=== PATIENT | male | born 1985 | race Caucasian/White ===

== ENCOUNTER → 2023-04-13 | Outpatient (CLI) | payer MEDICAID ==
--- NOTE | 2023-04-13 10:21 | CA ---
Transthoracic Echo Report Name: Geoffrey Joyce Age: 37 Gender: M : 1985 Exam Date: 04/13/2023 09:20 Exam Location: [facility] Ht (in): 70 Wt (lb): 160 Ordering Physician: Beka Avendano MD Attending/Referring Phys: Iraida Yates [facility] Recovery Assistant Mónica Messer RDCS Procedure CPT: Indications: R7.89 other chest pain Cardiac Hx: Technical Quality: Contrast 1: Total Dose (mL): Contrast 2: Total Dose (mL): MEASUREMENTS (Male / Female) Normal Values 2D ECHO LV Diastolic Diameter PLAX 4.8 cm 4.2 - 5.9 / 3.9 - 5.3 cm LV Systolic Diameter PLAX 3.4 cm IVS Diastolic Thickness 1.0 cm 0.6 - 1.0 / 0.6 - 0.9 cm LVPW Diastolic Thickness 0.9 cm 0.6 - 1.0 / 0.6 - 0.9 cm LV Relative Wall Thickness 0.4 LVOT Diameter 2.3 cm Aortic Root Diameter 3.8 cm LA Systolic Diameter LX 3.2 cm 3.0 - 4.0 / 2.7 - 3.8 cm LV Diastolic Volume MOD BP 137.6 cm??? 67 - 155 / 56 - 104 cm??? LV Systolic Volume MOD BP 62.1 cm??? 22 - 58 / 19 - 49 cm??? LV Ejection Fraction MOD BP 54.9 % >= 55 % LV Cardiac Index MOD BP 2111.2 cm???/min???m??? LV Diastolic Volume MOD 4C 157.1 cm??? LV Systolic Volume MOD 4C 73.0 cm??? LV Ejection Fraction MOD 4C 53.5 % LV Cardiac Index MOD 4C 2352.0 cm???/min???m??? LV Diastolic Length 4C 9.8 cm LV Systolic Length 4C 8.7 cm LV Diastolic Volume MOD 2C 121.6 cm??? LV Systolic Volume MOD 2C 50.0 cm??? LV Ejection Fraction MOD 2C 58.9 % LV Cardiac Index MOD 2C 2002.2 cm???/min???m??? LV Diastolic Length 2C 9.7 cm LV Systolic Length 2C 8.2 cm DOPPLER AV Peak Velocity 123.2 cm/s AV Peak Gradient 6.1 mmHg AV Mean Velocity 92.9 cm/s AV Mean Gradient 3.7 mmHg AV Velocity Time Integral 27.4 cm LVOT Peak Velocity 110.3 cm/s LVOT Peak Gradient 4.9 mmHg LVOT Velocity Time Integral 25.1 cm LVOT Stroke Volume 101.2 cm??? LVOT Stroke Volume Index 53.3 ml/m??? LVOT Cardiac Index 2830.0 cm???/min???m??? AV Area Cont Eq vti 3.7 cm??? AV Area Cont Eq pk 3.6 cm??? Mitral E Point Velocity 105.4 cm/s Mitral A Point Velocity 72.5 cm/s Mitral E to A Ratio 1.5 MV Deceleration Time 220.6 ms MV E' Velocity 12.6 cm/s Mitral E to MV E' Ratio 8.4 TR Peak Velocity 106.0 cm/s TR Peak Gradient 4.5 mmHg Right Ventricular Systolic Press 14.5 mmHg PV Peak Velocity 71.1 cm/s PV Peak Gradient 2.0 mmHg FINDINGS Left Ventricle Mildly increased left ventricular systolic volume. Left ventricular ejection fraction is estimated at 55-60%. No obvious regional wall motion abnormalities. Right Ventricle Normal right ventricular size. Right ventricular systolic pressure estimated at 14.49 mmhg. Right Atrium Normal right atrial size. Left Atrium Normal left atrial size. Mitral Valve Trace mitral regurgitation. Aortic Valve Trileaflet aortic valve. Tricuspid Valve Trace tricuspid regurgitation. Pulmonic Valve No pulmonic regurgitation. Pericardium No pericardial effusion. Aorta Normal size aortic root. CONCLUSIONS Normal LV function Previewed by: Dr. Landon Dash MD (Electronically Signed) Final Date: 13 April 2023 10:20
--- NOTE | 2023-04-13 17:41 | CA ---
Exercise Stress Test Report Name: Geoffrey Joyce Exam Date: 04/13/2023 10:55 Exam Location: [facility] Ht (in): 70 Wt (lb): 160 BSA: 1.90 Ordering Phys: Beka Avendano MD Referring Phys: Iraida Yates Technologist: Solitario Valero Age: 37 Gender: M : 1985 Procedure CPT: Indications: R07.89 other chest pain ICD-10 Codes: Patient History: CHEST PAIN, ELEVATED CHOLESTEROL LEVELS, FAMILY HX OF HEART DISEASE Medications: NONE Meds past 24 hrs: Pretest Chest Pain: STRESS TEST Shady Protocol Exercise Duration (min:sec): 13:[address] Depressions (mm): Angina Score: Hart Score: Resting HR (bpm): 71 Peak HR (bpm): 170 Resting BP (mmHg): 112 / 74 Peak BP (mmHg): 176 / 69 MPHR: 183 Target HR: 156 % MPHR: 93 METS: 14.8 Total Dose: Peak Dose: Atropine: Double Product: 60282 BP Response: Stress Termination: TARGET HR REACHED/MAX EXERTION Stress Symptoms: NO SYMPTOMS Stress Summary: ECG ANALYSIS Resting ECG: Normal sinus rhythm normal axis normal intervals Stress ECG: Patient exercised on Shady protocol for 13 minutes achieving 85% of predicted maximal heart rate without chest pain or diagnostic ST segment depression CONCLUSIONS Excellent exercise tolerance Negative stress test by EKG criteria Dr. Landon Dash MD (Electronically Signed) Final Date: 13 April 2023 17:40
--- NOTE | 2023-04-14 13:39 | NM ---
EXAMINATION TYPE: NM stress cardiolite complete DATE OF EXAM: 04/13/2023 COMPARISON: NONE CLINICAL INDICATION: Male, 37 years old with history of R07.89 other chest pain; TECHNIQUE: After the intravenous administration of 9.7 mCi Tc 99m Sestamibi - Rest images obtained 6 3 minutes post injection. The patient exercised using a BRADY protocol and 1 minute prior to peak e xercise was injected with 25.5 mCi Tc 99m Sestamibi - Stress images obtained 26 minutes post injectio n. FINDINGS: Targeted heart rate (156 BPM) was achieved during performance of the study (170 BPM achieved with tot al exercise time 13 minutes 30 seconds). Review of stress and rest SPECT images demonstrates a fixed defect along the mid to basal inferoseptal wall that accentuates along the mid aspect of the heart on stress. Gated analysis shows normal wall motion with an estimated left ventricular ejection fraction of 61 %. TID is calculated at 0.88, within normal limits. IMPRESSION: Fixed defect along the mid to basal inferoseptal wall could represent attenuation artifac t or an area of old infarct. Further clinical correlation is recommended. If there is a history of pr ior infarct, unable to exclude some inducible sukhdeep-infarct ischemia at the mid aspect of the inferose ptal wall.
== END | disposition home or self-care (01) ==
LOC: RADNMMAIN 09:06
PROVIDERS: ATTEND Family Medicine
DX: R07.89 Other chest pain (principal)
CPT/HCPCS: 93017; 93306; 78452; A9500